=== PATIENT | male | born 1990 | race Caucasian/White ===

== ENCOUNTER → 2022-10-20 10:24 | Outpatient (CLI) | payer OTHER, SELFPAY | PROVIDERS: Family Provider Student in an Organized Health Care Education/Training Program; PCP Student in an Organized Health Care Education/Training Program; Referring Provider Student in an Organized Health Care Education/Training Program; Visit Provider Student in an Organized Health Care Education/Training Program | DX: M25.572 Pain in left ankle and joints of left foot (principal); M54.16 Radiculopathy, lumbar region | CPT/HCPCS: 95886; 95911 ==